=== PATIENT | male | born 1930 | race Caucasian/White ===

== ENCOUNTER 2018-09-25 10:29 | Observation (INO) | payer OTHER ==
[2018-09-25] MEDS ORDERED: NS 500 ML IV ONE (10:44)
[2018-09-25 11:02] LABS: PLATELET COUNT 143 10^3/uL (150-400)
--- NOTE | 2018-09-25 11:05 | EDPHY ---
HPI/HX/ROS/PE/MDM Narrative: CHIEF COMPLAINT: Syncope HPI: This patient is an 88 year old male with past medical history including hyperlipidemia and type 2 diabetes mellitus. He arrives accompanied by his friend following a witnessed syncopal episode at [facility] this morning. Was sitting in the pews and did not fall or sustain any trauma. He had 3-4 friends present who took care of him. Unknown duration LOC. He felt well upon waking this morning, drove himself from the [place] to [facility]. He currently feels completely well. His friend at bedside notes the patient did eat half a bagel this morning, but no other food or drink. The patient does not remember what kind of bagel he had this morning, or many other details surrounding his syncopal episode. He notes he is not insulin-dependent ad has been taking his Januvia as prescribed. Denies chest pain, shortness of breath, lightheadedness, nausea, vomiting, diarrhea, or other recent illness or trauma. REVIEW OF SYSTEMS: A comprehensive 10 system review of systems is otherwise negative aside from elements mentioned in the history of present illness and medical decision making. PMH: Hyperlipidemia, diabetes mellitus type II. SOCIAL HISTORY: . Retired. Friend at bedside. PHYSICAL EXAM: General:Patient is alert, in no acute distress. ENT:Eyes are normal to inspection. ENT inspection normal. Neck: Normal inspection. Full range of motion. Respiratory:No respiratory distress. Breath sounds normal bilaterally. Cardiovascular: Regular rate and rhythm. Holosystolic blowing murmur, 3/6, heard loudest at RUSB. Strong peripheral pulses. Normal cap refill. Abdomen:The abdomen is nontender to palpation. There are no peritoneal signs. There are normal bowel sounds. Back: Normal to inspection. No tenderness to palpation. Skin: Normal color. No rash. Warm and dry. Extremities: Normal appearance. Full range of motion. Neuro: Oriented x3. Normal motor function. Normal sensory function. ED Course: 88 y/o male presents following a witnessed syncopal episode this morning. He currently feels well. On exam, there is a holosystolic blowing murmur. Plan for echocardiogram. Plan for EKG, labs including CBC, chemistries, troponin. Plan to administer 500mL IV NS. EKG was ordered and interpreted by myself. Please see [facility] system for official reading. Diffuse t-wave inversions noted. Chest x-ray is negative for acute processes. Reviewed laboratory studies. BGL elevated at 236. He is a known type 2 diabetic , taking Januvia. Troponin negative. Labs otherwise unremarkable. Echocardiogram pending. Echocardiogram initial impression suggests moderate to severe aortic stenosis. Reassessed patient. Discussed imaging and laboratory results.Official echo report pending at this time. Plan to admit for syncope, aortic stenosis. 13:02 Consulted with hospitalist service. Dr. Lira accepts admission. 13:[address] Carbajal, career services manager. Echocardiogram shows moderate to severe aortic stenosis. - Data Points Imaging Results: Imaging Impressions Chest X-Ray 09/25/18 10:58 Impression: 1. Chronically elevated left hemidiaphragm with left basilar subsegmental atelectasis versus scar. 2. There is no evidence of congestive heart failure. 3. Query significance of convex-edged redundancy of the soft tissues over the posterior back. Clinical correlation is suggested. Imaging: I viewed and interpreted images myself Laboratory Results: Laboratory Results 09/25/18 10:55 09/25/18 10:55 09/25/18 09/25/18 09/25/18 10:55 10:55 10:55 WBC 6.63 10^3/uL 10^3/uL (3.80-9.50) RBC 3.97 10^6/uL L 10^6/uL (4.40-6.38) Hgb 13.6 g/dL L g/dL (13.7-17.5) Hct 41.1 % % (40.0-51.0) MCV 103.5 fL H fL (81.5-99.8) MCH 34.3 pg H pg (27.9-34.1) MCHC 33.1 g/dL g/dL (32.4-36.7) RDW 15.8 % H % (11.5-15.2) Plt Count 143 10^3/uL L 10^3/uL (150-400) MPV 10.4 fL fL (8.7-11.7) Neut % (Auto) 90.2 % H % (39.3-74.2) Lymph % (Auto) 3.9 % L % (15.0-45.0) [place] % (Auto) 5.1 % % (4.5-13.0) Eos % (Auto) 0.2 % L % (0.6-7.6) Baso % (Auto) 0.3 % % (0.3-1.7) Nucleat RBC Rel Count 0.0 % % (0.0-0.2) Absolute Neuts (auto) 5.98 10^3/uL 10^3/uL (1.70-6.50) Absolute Lymphs (auto) 0.26 10^3/uL L 10^3/uL (1.00-3.00) Absolute Monos (auto) 0.34 10^3/uL 10^3/uL (0.30-0.80) Absolute Eos (auto) 0.01 10^3/uL L 10^3/uL (0.03-0.40) Absolute Basos (auto) 0.02 10^3/uL 10^3/uL (0.02-0.10) Absolute Nucleated RBC 0.00 10^3/uL 10^3/uL (0-0.01) Immature Gran % 0.3 % % (0.0-1.1) Immature Gran # 0.02 10^3/uL 10^3/uL (0.00-0.10) Platelet Estimate ADEQUATE (ADEQ) Polychromasia 1+ H Hypochromasia 1+ H Oval Macrocytes 1+ H Elliptocytes 1+ H Sodium 135 mEq/L mEq/L (135-145) Potassium 4.3 mEq/L mEq/L (3.5-5.2) Chloride 102 mEq/L mEq/L (97-110) Carbon Dioxide 24 mEq/l mEq/l (22-31) Anion Gap 9 mEq/L mEq/L (6-14) BUN 32 mg/dL H mg/dL (7-23) Creatinine 1.4 mg/dL H mg/dL (0.7-1.3) Estimated GFR 48 Glucose 236 mg/dL H mg/dL (70-100) Calcium 9.0 mg/dL mg/dL (8.5-10.4) POC Troponin I 0.01 ng/mL ng/mL (0.00-0.08) Medications Given: Discontinued Medications Sodium Chloride (Ns) 500 mls @ 0 mls/hr IV EDNOW ONE; Wide Open PRN Reason: Protocol Stop: 09/25/18 10:45 Last Admin: 09/25/18 11:17 Dose: 500 mls Point of Care Test Results: Chemistry 09/25/18 10:55 POC Troponin I 0.01 ng/mL ng/mL (0.00-0.08) General Time Seen by Provider: 09/25/18 10:43 Initial Vital Signs: Initial Vital Signs Temperature (C) 37 C 09/25/18 10:34 Heart Rate 84 09/25/18 10:34 Respiratory Rate 18 09/25/18 10:34 Blood Pressure 104/63 09/25/18 10:34 O2 Sat (%) 92 09/25/18 10:34 O2 Delivery Mode Room Air Allergies/Adverse Reactions: No Allergies [NKA] Allergy (Verified 09/25/18 12:51) Home Medications: Medication Instructions Recorded Methotrexate Sodium [Rheumatrex] 10 mg PO Q7D 09/25/18 SITAGLIPTIN PHOSPHATE [Januvia 50 50 mg PO DAILY 09/25/18 mg] Acetaminophen [Tylenol 325mg (*)] 650 mg PO Q4HRS PRN tab 09/26/18 Benzonatate [Tessalon Pearles] 100 mg PO TID PRN #30 cap 09/26/18 Folic Acid [Folic Acid 1 MG (*)] 1 mg PO DAILY #30 tab 09/26/18 guaiFENesin [Guaifenesin ER] 1,200 mg PO BID #30 tab.er.12h 09/26/18 Departure - Departure Disposition: [facility] Acute Condition: Good Report Scribed for: Fabian Pimentel Report Scribed by: Roan Wright Date of Report: 09/25/18 Time of Report: 11:08 Physician Review and Approval Statement: Portions of this note were transcribed by an ED scribe. I personally performed the history, physical exam, and medical decision making; and confirm the accuracy of the information in the transcribed note.
[2018-09-25] MEDS ORDERED: PROMETHAZINE HCL 25 MG/ML INJ IVP PRN (13:44)
[2018-09-25] MEDS ORDERED: ACETAMINOPHEN 325 MG TAB PO PRN (13:44)
--- NOTE | 2018-09-25 14:20 | ECHO ---
[email or web address] [address] [address] Main: [phone] Echocardiography Examination Transthoracic Name: MARIKA BETHEA MR#: [id number] Study Date: 09/25/2018 Study Time: 12:49 PM Date of : 1930 Age: 88 year(s) Height: 170.2 cm (67 in.) Weight: 61.24 kg (135 lb.) BSA: 1.71 m2 Gender: Male Examination: Echo Contrast: Image Quality: Fair Rhythm: Normal sinus rhythm Heart Rate: 77 bpm BP: 96 mmHg/62 mmHg Indication: Cardiac: syncope, Severe Cough, Systolic murmur Procedure Staff Referring Physician: Home Economist Consumer Service: Natan Hughes RDCS Reading Physician: Real Carbajal MD Requesting Provider: Indication: Cardiac: syncope, Severe Cough, Systolic murmur Measurements Chambers AV/MV Label Value Normal Value Label Value Normal Value LVOT Vmax 1 m/s (0.7m/s - 1.1m/s) AV PGmax 56 mmHg LVOTd 2.8 cm (1.9cm - 2.1cm) AV PGmean 32 mmHg LVOT PGmax 4 mmHg AV Vmax 3.73 m/s LVDd, 2D 4.2 cm (4.2cm - 5.9cm) KRISHNA (Vmax) 1.7 cm2 LVDs, 2D 2.6 cm (2.1cm - 4cm) KRISHNA (VTI) 1.9 cm2 IVSd, 2D 0.9 cm (0.6cm - 1.1cm) MV E Vmax 0.74 m/s LVPWd, 2D 1 cm (0.6cm - 1cm) MV A Vmax 1.09 m/s LVEF, 2D 70 % (54% - 74%) MV E/A 0.68 LVOT PGmean 2 mmHg MV E/E' lateral 12.5 LVOT Vmean 0.66 m/s MV E/E' septal 13.6 (0.45 - 1.25) LADs, 2D 3.1 cm (3cm - 4cm) MV E' septal 0.05 m/s Additional Vessels MV E' lateral 0.06 m/s Label Value Normal Value MV E/E' mean 13.45 AoAsc 4.1 cm MV E' mean 0.06 m/s AoRoot, MM 4.3 cm (2.2cm - 3.7cm) TV/PV Label Value Normal Value WA End valdivia Duc 1.56 cm/s PV PGmax 3 mmHg PV Vmax, Caliper 0.88 m/s (0.6m/s - 0.9m/s) Patient: MARIKA BETHEA Study Date: 09/25/2018 Page 1 of 3 12:49 PM Conclusions Left Ventricle: Normal global systolic left ventricular function. Cannot determine LAP and Diastolic Dysfunction Grade. Right Ventricle: Right ventricular systolic function is normal. Mitral Valve: No significant mitral regurgitation. There is mild mitral calcification. Aortic Valve: There is moderate to severe aortic stenosis. Aortic leaflets exhibit moderate to marked calcification. Aortic Valve Measurements AV Vmax is 3.73 m/s. AV PGmean is 32 mmHg. Aorta: The ascending aorta measures 4.1 cm. There is dilatation of the ascending aorta. Pericardium: No pericardial effusion. Findings Left Ventricle: Left ventricle is normal in size. Normal global systolic left ventricular function. There are no regional wall motion abnormalities. Cannot determine LAP and Diastolic Dysfunction Grade. Right Ventricle: Normal size right ventricle. Right ventricular systolic function is normal. Left Atrium: The left atrium is normal in size. Right Atrium: The right atrium is normal in size. Mitral Valve: No significant mitral regurgitation. No mitral valve stenosis. There is mild mitral calcification. Aortic Valve: No aortic valve regurgitation. There is moderate to severe aortic stenosis. Aortic leaflets exhibit moderate to marked calcification. There is aortic sclerosis present. Aortic Valve Measurements AV Vmax is 3.73 m/s. AV PGmean is 32 mmHg. Tricuspid Valve: No significant tricuspid regurgitation. Pulmonic Valve: Pulmonic valve is poorly visualized. Trivial pulmonic valve regurgitation is present. Aorta: The aortic root size in M-mode measures 4.3 cm. The ascending aorta measures 4.1 cm. There is dilatation of the ascending aorta. Aorta Measurements Patient: MARIKA BETHEA Study Date: 09/25/2018 Page 2 of 3 12:49 PM AoRoot, MM is 4.3 cm. Pericardium: No pericardial effusion. Exam Details Procedure Ordered: Echo Image Quality: Fair (No Signature Object) Patient: MARIKA BETHEA Study Date: 09/25/2018 Page 3 of 3 12:49 PM [id number]
--- NOTE | 2018-09-25 15:15 | CPEKG ---
Test Reason : OPEN Blood Pressure : / mmHG Vent. Rate : 089 BPM Atrial Rate : 089 BPM P-R Int : 227 ms QRS Dur : 087 ms QT Int : 378 ms P-R-T Axes : 049 042 247 degrees QTc Int : 460 ms Sinus rhythm Atrial premature complex Prolonged TN interval Abnormal T, consider ischemia, diffuse leads Confirmed by Fabian Pimentel ([id number]) on 09/25/2018 3:15:02 PM Referred By: Fabian Pimentel Confirmed By:Fabian Pimentel
--- NOTE | 2018-09-25 15:28 | PDGENHP ---
History and Physical History and Physical: Chief complaint: Fainted History of present illness: The patient is an 80-year-old male with past medical history of aortic stenosis who had an episode of syncope this morning when he was sitting in a [facility] [employer]. He remembers feeling fatigued and lightheaded prior to the syncopal episode. He he thinks the syncopal episode may have lasted a few minutes at most. Syncope was witnessed by multiple friends at [employer]. Patient did not hit his head, have any convulsions, or have confusion. He denied palpitations, tachycardia, shortness of breath, chest pain , or other associated symptoms. This is never occurred in the past. He did not have anything to eat or drink this morning. After he recovered, his friends fed him small pieces of bagel and gave him a drink. In the ED, he received a 500cc bolus of NS. He currently feels well and only complains of a slight headache. Past medical history: Hyperlipidemia, diabetes mellitus type 2, CKD stage 3, moderate aortic stenosis, diastolic dysfunction, prostate cancer in remission, rheumatoid arthritis, left diaphragm paralysis. Past surgical history: Left cataract surgery, hernia repair. Medications: Januvia, methotrexate, multiple vitamins. Allergies: No known allergies. Social history: Former smoker, quit at 35 years old. Occasional alcohol consumption. No drug use. . Exercises almost daily at the [facility]. Retired. Family history: Diabetes mellitus, hypertension. His 98yo brother has heart disease. Review of systems: 10 point review of systems was conducted and is negative except per HPI Physical exam: Vitals: Reviewed General: The patient is an elderly male who is A&Ox3 and in no acute distress. HEENT: normocephalic, extraocular movements intact, conjunctivae clear. Nares and oral mucosa pink and moist. + left ptosis noted. Neck: trachea midline, no visible masses, no external lesions. CV: +S1/S2, reg rate and rhythm. +gr 2 harsh holosystolic murmur w/ radiation into carotid arteries. +2 radial and posterior tibial pulses bilaterally. Resp: unlabored breathing, lungs clear to auscultation w/o rales, rhonchi, or wheezing. Abd: soft and nondistended, bowel sounds present. Nontender throughout. Musculoskeletal: 4/5 muscle strength bilateral upper and lower extremities. Neuro: cranial nerves II - XII grossly intact (except for weak CN III - L eyelid ). Intact gross motor and sensory function. Psych: appropriate mood/affect. Skin: No rash or ecchymoses. : no suprapubic tenderness. Heme/lymph: No peripheral edema. Labs: WBC 6.63 hemoglobin 13.6 MCV 103.5 platelet 143. BUN 32 creatinine 1.4 glucose 236. Troponin I 0.01 Other Data: EKG - personally interpreted: Sinus rhythm, rate 90. First degree AV block. QTC 460. Biatrial hypertrophy. Borderline LVH. Early R-wave progression. T- wave inversion c/w ischemia vs strain in inferior/lateral/anterior leads. CXR AP - personally interpreted: Left hemidiaphragm elevated. No acute cardiopulmonary process. Echo- reviewed. Impression and plan: Syncope Moderate to severe Abnormal EKG (see above) Diastolic dysfunction, LVH CKD stage 3, at baseline Macrocytic anemia, mild Thrombocytopenia, mild Rheumatoid arthritis, on MTX Diabetes mellitus, non-insulin dependent Occasional hematuria, History of prostate cancer Adjustment disorder with depressed mood/Bereavement -DDx etiology - likely vasogenic/cardiogenic 2/2 orthostatic hypotension + . -Check orthostatic VS (but may not be as accurate now since pt had been hydrated in ED). -Generally pt has no physical complaints to indicate symptomatic severe , aside from today's syncope. -Discussed echo results w/ pt and family - has gone from mild-mod to mod- severe. -Monitor on telemetry. -Trend troponins. -Consult Cardiology for additional recs. -Avoid QT prolonging medications. -Continue home meds. -Check AM labs. -PT/OT eval. -Observation status. Code status-Full Code. VTE ppx- Lovenox.
[2018-09-25] MEDS ORDERED: BENZONATATE 100 MG CAP PO PRN (16:25)
[2018-09-25] MEDS ORDERED: guaiFENesin 200 MG TAB PO PRN (16:25)
[2018-09-26 04:39] LABS: PLATELET COUNT 114 10^3/uL (150-400)
--- NOTE | 2018-09-26 10:42 | GCON ---
[f rep st] CONSULTATION CARDIOLOGY CONSULT REFERRING PHYSICIAN: Pankaj CHIEF COMPLAINT: Syncope. HISTORY OF PRESENT ILLNESS: This is an 88-year-old male with history of diabetes mellitus who was ad mitted to [facility] with complaints of syncopal episode x1. The patient has not had a ny history of syncopal episodes and has been told about a lifelong murmur. [facility] showed an ECG, which showed normal sinus rhythm with diffuse ST changes consistent with s train pattern, rather than ischemia. His troponins were negative x3 sets. He denies any chest pain. His echocardiogram that was performed did show a normal ventricular function with normal EF with wh at appeared to be at least moderate aortic stenosis by gradient. Currently, patient is resting quiet ly. Denies any active discomfort. On the monitor, he has been in sinus rhythm with occasional PVCs, but there has been no pauses or atrial fibrillation or a high-grade heart block present. PAST MEDICAL HISTORY: Significant for diabetes, also consists of rheumatoid arthritis. HOME MEDICATIONS: Includes methotrexate, Januvia. FAMILY HISTORY: Noncontributory. REVIEW OF SYSTEMS: Patient currently denies any visual changes. No headache and no ear pain. No ne ck pain. No throat pain. No chest pain. No abdominal pain. No back pain. No upper extremity pain . No lower extremity pain. No neurologic deficits. PHYSICAL EXAM: VITAL SIGNS: Afebrile 96, blood pressure is currently 112/60 with a heart rate of 72 , respiratory rate 12, sat 95% on room air. HEENT: Pupils equal and reactive to light and accommoda tion. NECK: Intact. CARDIOVASCULAR: Regular rate and rhythm, S1, 2. There is a 3/6 systolic murmu r heard best at the right upper sternal border. LUNGS: Clear to auscultation bilaterally. ABDOMEN: Soft, nontender. No guarding. EXTREMITIES: No clubbing. No cyanosis. No edema. NEUROLOGIC: T he patient is alert x3. LABORATORY VALUES: Currently show a creatinine of 1.2, BUN 29. Troponins negative x3 sets. Hemoglo bin of 11.6. ASSESSMENT/PLAN: Syncopal episode. At this time, the patient's syncopal episode may be secondary to a recent upper respiratory infection versus dehydration, though he does have evidence of moderate ao rtic stenosis on echocardiogram, and this could potentially be contributing, he denies any other sequ elae of known aortic stenosis pathology, i.e. shortness of breath, chest pain. Of course, the patien t appears to have slight dementia and a number of his questions were answered by his daughters in con junction with him. I have asked him and his family to discuss about how his symptomatology has progr essed over the last 6 months as this may be an indication that his aortic stenosis is worsening. At this point time if the patient remains normal sinus rhythm on the telemetry and is ambulating the navya ls without issues and blood pressure is stable, the patient can be discharged from a cardiology stand point. I would be happy to see the patient in the outpatient setting to further evaluate and keep a close eye on progression of his aortic stenosis. /[id number]/MODL
[2018-09-26] MEDS: ENOXAPARIN 40 MG/0.4 ML SYR SC SCH ×2 (10:54→12:19)
[2018-09-26 13:20] VITALS: BP 120/67
--- NOTE | 2018-09-26 15:03 | GDS ---
[f rep st] DISCHARGE SUMMARY DISCHARGE DIAGNOSES: 1. Syncope. 2. Volume depletion with positive orthostatics. 3. Viral upper respiratory infection. 4. Wsexmnbi-hn-gtxsek aortic stenosis. 5. Abnormal EKG. 6. History of diastolic dysfunction. 7. Chronic kidney disease. 8. Macrocytic anemia. 9. Rheumatoid arthritis. 10. Chronic immunosuppression, on methotrexate. 11. Diabetes mellitus. CONSULTS: Ashkan Armando MD. IMAGING/STUDIES/PROCEDURES: 1. Echocardiogram, September 25, 2018, showed normal left ventricular systolic function with no wall kana on abnormality, [id number] aortic stenosis with aortic valve mean pressure gradient of 32. T he ascending aorta measures 4.1 cm with dilation of the ascending aorta. 2. Carotid Doppler revealed no evidence of flow-limiting stenosis. There is less than 50% diameter stenosis of the right and left internal carotid arteries with patent bilateral vertebral arteries. HISTORY OF DETAILS: Please see the History and Physical dated September 25, 2018. In brief, the patient is an 88-year-old male with a history of aortic stenosis, who presented to the emergency department a fter a syncopal event while sitting in [employer]. He was noted to have upper respiratory symptoms and a respiratory viral panel was positive for parainfluenza virus. He was admitted to the hospital for f urther evaluation. HOSPITAL COURSE: The patient was admitted to the cardiac telemetry unit. He had no abnormal events on telemetry. Echocardiogram was performed. His aortic stenosis has progressed from mild to moderat e to moderate to severe. He also had positive orthostatic vital signs on arrival. He received IV hy dration overnight and his orthostasis improved with normal orthostatic vital signs on the day of disc harge. Cardiology consult was obtained given his aortic stenosis. It is thought more likely that hi s syncope was related to volume depletion and orthostasis. He has not had ongoing symptoms of aortic stenosis previously, such as dizziness, chest pain or shortness of breath. He will have close outpa tient followup with Dr. Ashkan Armando for close surveillance of his valve disease. However, no toledo rgical intervention was recommended at this time. He received supportive care for his viral URI and after hydration, he ambulated in the halls with no symptoms. On the day of discharge, his vital sign s are stable. DISPOSITION: The patient is discharged to home in stable condition. FOLLOWUP: Dr. Ashkan Armando, Cardiology. DISCHARGE MEDICATIONS: Please see [facility] completed outpatient medication list. New medications in clude: Tylenol 650 p.o. q.4 hours p.r.n., Tessalon Perles 100 mg p.o. three times daily p.r.n. #30, no refills; folic acid 1 mg p.o. daily, #30, to take along with methotrexate; guaifenesin 1200 mg p.o . twice daily, #30, no refills. He will continue his outpatient medications including Januvia and me thotrexate. /[id number]/MODL
[2018-09-27] MEDS ORDERED: METHOTREXATE 2.5 MG TAB PO SCH (09:00)
== END 2018-09-26 15:28 | disposition home or self-care (01) ==
LOC: F3E 14:47 → F2W 20:49
PROVIDERS: ADMIT Internal Medicine; ATTEND Hospitalist
DX: R55 Syncope and collapse (principal); E86.0 Dehydration; J06.9 Acute upper respiratory infection, unspecified; I35.0 Nonrheumatic aortic (valve) stenosis; N18.9 Chronic kidney disease, unspecified; D53.9 Nutritional anemia, unspecified; M06.9 Rheumatoid arthritis, unspecified; E11.22 Type 2 diabetes mellitus with diabetic chronic kidney disease; E78.5 Hyperlipidemia, unspecified; Z85.46 Personal history of malignant neoplasm of prostate
CPT/HCPCS: 71046; 93005; 93306; 93880; 97116; 97161; 97165; G0378; 84484-ER; J1650

== ENCOUNTER → 2018-11-18 | Outpatient (CLI) | payer OTHER | LOC: FIMAGING 14:16 ==